=== PATIENT | female | born 1990 | race Two or more races ===

== ENCOUNTER → 2020-05-08 | Outpatient (CLI) | payer OTHER | END | disposition home or self-care (01) | LOC: RX STUDY 10:09 | DX: N85.8 Other specified noninflammatory disorders of uterus (principal) ==

== ENCOUNTER 2023-03-14 10:08 | Emergency (ER) | payer OTHER ==
[~2023-03-14] VITALS: Ht 152.4 cm; Wt 67.1 kg
== END 2023-03-14 14:17 | disposition home or self-care (01) ==
LOC: ER 10:08
PROVIDERS: General Practice
DX: O98.513 Other viral diseases complicating pregnancy, third trimester (principal); Z3A.34 34 weeks gestation of pregnancy; B34.9 Viral infection, unspecified; Z20.822 Contact with and (suspected) exposure to COVID-19

== ENCOUNTER 2023-03-28 07:23 | Inpatient (IN) | payer OTHER ==
[~2023-03-28] VITALS: Ht 152.4 cm; Wt 3.2 kg
[2023-04-04] MEDS ORDERED: ROBITUSSIN COL237 ML PO (06:16)
[2023-04-04] MEDS ORDERED: PRENATABS RX T1 EACH PO (06:17)
[2023-04-07] MEDS ORDERED: IBU800 MG PO (09:17)
[2023-04-07] MEDS ORDERED: SURFAK240 M1 PO (09:17)
== END 2023-04-07 11:45 | disposition home or self-care (01) | DRG 788 ==
LOC: LDR 04-03 07:00 → O/R 04-04 05:30 → OB/GYN 04-04 05:30
PROVIDERS: ADMIT Student in an Organized Health Care Education/Training Program; ATTEND Student in an Organized Health Care Education/Training Program
PROC: 4A1HXCZ Monitoring of Products of Conception, Cardiac Rate, External Approach (ICD-10-PCS; 2023-04-04)
PROC: 10D00Z1 Extraction of Products of Conception, Low, Open Approach (ICD-10-PCS; principal; 2023-04-04 10:30)
DX: O44.03 Complete placenta previa NOS or without hemorrhage, third trimester (principal); O32.1XX0 Maternal care for breech presentation, not applicable or unspecified; Z3A.37 37 weeks gestation of pregnancy; Z37.0 Single live birth; Z20.822 Contact with and (suspected) exposure to COVID-19; O34.211 Maternal care for low transverse scar from previous cesarean delivery